=== PATIENT | male | born 1955 | race Caucasian/White ===

== ENCOUNTER 2024-12-23 12:08 | Emergency (ER) | payer MEDICARE ==
[~2024-12-23] VITALS: Ht 180.3 cm; Wt 104.3 kg
[2024-12-23] MEDS ORDERED: HYDROcodone 5-APAP 325 TAB PO ONE (14:45)
[2024-12-23] MEDS ORDERED: Ketorolac Tromethamine 15mg Vial IM ONE (14:45)
[2024-12-23] MEDS ORDERED: FentaNYL Citrate 50 MCG/ML 2 ML Injection IM ONE (15:20)
[2024-12-23] MEDS ORDERED: HYDR1TAB94 PO (15:57)
== END 2024-12-23 16:05 | disposition home or self-care (01) ==
LOC: ER 12:08
DX: S82.845A Nondisplaced bimalleolar fracture of left lower leg, initial encounter for closed fracture (principal); W01.0XXA Fall on same level from slipping, tripping and stumbling without subsequent striking against object, initial encounter
CPT/HCPCS: 73610; A9270; J1885